=== PATIENT | female | born 1955 | race Caucasian/White ===

== ENCOUNTER 2021-04-22 12:59 | Outpatient (CLI) | payer MEDICARE, SELFPAY ==
--- NOTE | 2021-04-22 13:12 | MM_ITS ---
WS: [id number] ADDITIONAL VIEWS LEFT MAMMOGRAM HISTORY: LT BREAST ASYMMETRY COMPARISON: 09/11/2020, 05/09/2019 and 08/18/2017 Spot compression views LEFT breast in CC, MLO projections and true ML submitted. The asymmetry seen on a prior mammogram of 09/11/2020 is no longer present on the CC image in the lurdes tral breast. There is normal fibroglandular tissue. No additional imaging necessary at this time. MM/[place] [id number] IMPRESSION: BI-RADS: 2-Benign FOLLOW UP: 1 Year Follow-up Patient to return to annual screening mammogram which should be in August.
== END 2021-04-22 13:00 | disposition home or self-care (01) ==
LOC: RADSHAW 13:06
PROVIDERS: PCP Family Medicine; Visit Provider Family Medicine
DX: N64.89 Other specified disorders of breast (principal)
CPT/HCPCS: 77065